=== PATIENT | male | born 1955 | race Caucasian/White ===

== ENCOUNTER 2020-06-23 12:48 | Outpatient (REF) | payer BC, SELFPAY ==
[2020-06-23 14:27] LABS: Uric Acid 6.9 mg/dL (3.4-7.0)
[2020-06-23 14:37] LABS: Erythrocyte Sedimentation Rate 12 MM/HR (0-15)
[2020-06-25 17:37] LABS: CRP High Sensitivity 9.1 mg/L
== END 2020-06-23 12:49 | disposition home or self-care (01) ==
LOC: HO.WFDLDS 12:48
PROVIDERS: Visit Provider Hospitalist
DX: M25.561 Pain in right knee (principal)
CPT/HCPCS: 36415; 84550; 85652; 86141

== ENCOUNTER 2021-02-14 12:43 | Outpatient (REF) | payer BC, SELFPAY ==
[2021-02-15 21:41] LABS: Lyme Abs Screen <0.90 index
== END 2021-02-14 12:44 | disposition home or self-care (01) ==
LOC: HO.WFDLDS 12:43
PROVIDERS: Visit Provider Family Medicine
DX: T14.8XXA Other injury of unspecified body region, initial encounter (principal); W57.XXXA Bitten or stung by nonvenomous insect and other nonvenomous arthropods, initial encounter; G89.29 Other chronic pain; M25.561 Pain in right knee
CPT/HCPCS: 36415; 86617; 86618